=== PATIENT | female | born 1965 | race African-American/Black ===

== ENCOUNTER → 2016-10-21 | Outpatient (CLI) | payer OTHER ==
[2016-09-16 23:05] VITALS: BP 171/85
[2016-10-21 09:00] LABS: BASOPHILS % (AUTO) 0.7 % (0.2-1.0); EOSINOPHILS # (AUTO) 0.1 x10^3/uL (0.0-0.2); EOSINOPHILS % (AUTO) 2.5 % (0.9-2.9); HEMATOCRIT 38.4 % (36.0-47.0); HEMOGLOBIN 12.7 g/dL (12.0-16.0); LYMPHOCYTES # (AUTO) 1.4 X10^3/uL (1.3-2.9); LYMPHOCYTES % (AUTO) 31.8 % (21.0-51.0); MEAN CORPUSCULAR HEMOGLOBIN 28.1 pg (27.0-34.0); MEAN CORPUSCULAR VOLUME 85.1 fL (80.0-100.0); MEAN PLATELET VOLUME 9.5 fL (7.4-11.0); MONOCYTES # (AUTO) 0.6 x10^3/uL (0.3-0.8); MONOCYTES % (AUTO) 12.8 % (0.0-13.0); NEUTROPHILS # (AUTO) 2.3 x10^3/uL (2.2-4.8); NEUTROPHILS % (AUTO) 52.2 % (42.0-75.0); PLATELET COUNT 149 X10^3/uL (150.0-450.0); RED BLOOD COUNT 4.51 X10^6/uL (3.5-5.4); RED CELL DISTRIBUTION WIDTH 14.6 % (11.6-16.5); WHITE BLOOD COUNT 4.5 X10^3/uL (3.6-10.0)
[2016-10-21 09:22] LABS: ALANINE AMINOTRANSFERASE 49 Units/L (12-78); ALBUMIN 3.9 g/dL (3.4-5.0); ALKALINE PHOSPHATASE 110 Units/L (46-116); ASPARTATE AMINO TRANSFERASE 78 Units/L (15-37); BLOOD UREA NITROGEN 26 mg/dL (7-18); CALCIUM 9.3 mg/dL (8.5-10.1); CARBON DIOXIDE 28.2 mmol/L (21-32); CHLORIDE 100 mmol/L (98-107); FREE T4 (FREE THYROXINE) 1.15 ng/dL (0.76-1.46); GLUCOSE 108 mg/dL (65-99); SODIUM 137 mmol/L (136-145); T4 (THYROXINE) 8.2 ug/dL (4.7-13.3); eGFR BLACK RACES > 60 (>60); eGFR NON BLACK RACES 51 (>60)
[2016-10-21 09:42] LABS: ERYTHROCYTE SEDIMENTATION RATE 26 MM/HOUR (0-20)
[2016-10-21 09:54] LABS: TRANSFERRIN 273 mg/dL (202-364)
== END ==
LOC: LAB 08:09
PROVIDERS: ATTEND Nurse Practitioner Family
DX: R25.3 Fasciculation (principal); I10 Essential (primary) hypertension; R79.89 Other specified abnormal findings of blood chemistry
CPT/HCPCS: 36415; 80053; 82607; 82728; 82746; 84436; 84439; 84443; 84466; 85025; 85652

== ENCOUNTER → 2016-11-05 | Outpatient (CLI) | payer OTHER ==
[2016-09-16 23:05] VITALS: BP 171/85
[2016-11-05 10:58] LABS: MAGNESIUM 1.5 mg/dL (1.7-2.9)
--- NOTE | 2016-11-05 14:23 | US ---
Indication: Elevated liver enzymes. Exam: Right upper quadrant ultrasound . Technique: Transverse and longitudinal grayscale and color Doppler sonographic images were obtained of the right upper quadrant. Findings: The liver is normal size and echogenicity. There is hepatopetal flow in the portal vein an d visualized hepatic veins and IVC are unremarkable. The gallbladder is normal size with no gallston es or wall thickening. The common duct measures 3 mm. The visualized aorta and pancreas unremarkable . The right kidney measures 11.7 cm in length is normal in echogenicity with no hydronephrosis, tio al stone, or mass seen. Impression: No abnormality seen. Reported By:
[2016-11-09 15:10] LABS: HEPATITIS A ANTIBODY IGM Negative (Negative)
[2016-11-10 06:22] LABS: HEPATITIS B CORE IGM Negative (Negative); HEPATITIS B SURFACE ANTIGEN Negative (Negative)
== END ==
LOC: RAD 10:13
PROVIDERS: ATTEND Nurse Practitioner Family
DX: R74.8 Abnormal levels of other serum enzymes (principal); R25.2 Cramp and spasm
CPT/HCPCS: 36415; 76705; 80074; 83735; 84132

== ENCOUNTER 2017-01-06 08:09 | Day surgery (SDC) | payer OTHER ==
[2017-01-06] MEDS ORDERED: D5 LR 1000 ML 1,000 ML IV ONE (08:19)
[2017-01-06] MEDS ORDERED: DIPRIVAN VIAL 20 ML ONE (09:47)
[2017-01-06] MEDS ORDERED: DIPRIVAN VIAL 10 ML ONE (10:07)
[2017-01-06 13:26] VITALS: BP 127/84
== END 2017-01-06 10:35 | disposition home or self-care (01) ==
LOC: SURG1 08:09
PROVIDERS: ATTEND Internal Medicine Gastroenterology
PROC: 0DJD8ZZ Inspection of Lower Intestinal Tract, Via Natural or Artificial Opening Endoscopic (ICD-10-PCS; principal; 2017-01-06 10:15)
DX: Z12.11 Encounter for screening for malignant neoplasm of colon (principal); K57.30 Diverticulosis of large intestine without perforation or abscess without bleeding; K64.0 First degree hemorrhoids
CPT/HCPCS: A4217; J3490; J7120

== ENCOUNTER → 2017-02-23 | Outpatient (CLI) | payer OTHER ==
[2017-02-23 17:01] LABS: BASOPHILS # (AUTO) 0.1 X10^3/uL (0.0-0.1); BASOPHILS % (AUTO) 0.9 % (0.2-1.0); EOSINOPHILS % (AUTO) 0.6 % (0.9-2.9); HEMATOCRIT 38.5 % (36.0-47.0); HEMOGLOBIN 12.6 g/dL (12.0-16.0); LYMPHOCYTES # (AUTO) 2.5 X10^3/uL (1.3-2.9); LYMPHOCYTES % (AUTO) 35.4 % (21.0-51.0); MEAN CORPUSCULAR HEMOGLOBIN 29.4 pg (27.0-34.0); MEAN CORPUSCULAR HGB CONC 32.9 g/dL (33.0-35.0); MEAN CORPUSCULAR VOLUME 89.4 fL (80.0-100.0); MEAN PLATELET VOLUME 9.4 fL (7.4-11.0); MONOCYTES # (AUTO) 0.4 x10^3/uL (0.3-0.8); NEUTROPHILS # (AUTO) 4.1 x10^3/uL (2.2-4.8); NEUTROPHILS % (AUTO) 58.1 % (42.0-75.0); PLATELET COUNT 222 X10^3/uL (150.0-450.0); RED CELL DISTRIBUTION WIDTH 13.9 % (11.6-16.5); WHITE BLOOD COUNT 7.1 X10^3/uL (3.6-10.0)
[2017-02-23 17:12] LABS: ALBUMIN 3.2 g/dL (3.4-5.0); C-REACTIVE PROTEIN 14.3 mg/L (0-3.0); CALCIUM 8.6 mg/dL (8.5-10.1); CARBON DIOXIDE 27.4 mmol/L (21-32); COR CA(FOR HYPOALB) 9.2 mg/dL (8.5-10.1); CREATININE 1.23 mg/dL (0.55-1.02); TOTAL PROTEIN 8.4 g/dL (6.4-8.2); URIC ACID 4.9 mg/dL (2.6-6.0)
[2017-02-23 17:19] LABS: RHEUMATOID FACTOR NEGATIVE (NEGATIVE)
--- NOTE | 2017-02-23 17:38 | RAD ---
HISTORY: Right knee pain. Complete three view series of the right knee joint. Findings: Examination of the knee joint demonstrate no evidence for acute fracture or dislocation. The medial and lateral tibiofemoral compartments demonstrate moderate to severe joint space narrowing and oste ophyte formation; most severe in the medial knee compartment. There is also a degenerative appearing genu valgum deformity. The findings are compatible with moderate to severe degenerative joint disea se. The lateral radiograph demonstrates a very small suprapatellar joint effusion. Patellofemoral compartment also shows moderate to severe DJD with chondromalacia patella. There is mild soft tissue swelling about the knee joint without underlying bony injury or fracture seen. No aggressive / dest ructive lytic bony lesions are seen. IMPRESSION: Moderate to severe right knee joint tricompartmental osteoarthritis, most severe medially, with a de generative appearing genu valgum deformity and chondromalacia patella. No evidence for an acute frac ture, subluxation, or lytic bony lesion. There is bone on bone joint space height loss appreciated medially. Reported By:
[2017-02-23 17:51] LABS: ERYTHROCYTE SEDIMENTATION RATE 37 MM/HOUR (0-20)
--- NOTE | 2017-02-23 18:00 | RAD ---
HISTORY: Left knee pain. Complete radiographic series of the left knee joint. Findings: Examination of the knee joint demonstrate no evidence for acute fracture or dislocation. The medial and lateral tibiofemoral compartments demonstrate moderate to severe joint space narrowing and oste ophyte formation; most severe in the medial knee compartment. The findings are compatible with moder ate to severe degenerative joint disease. The lateral radiograph demonstrates a very small suprapat ellar joint effusion. Patellofemoral compartment also shows moderate to severe DJD with chondromala susanne patella. There is mild soft tissue swelling about the knee joint without underlying bony injury or fracture seen. No aggressive / destructive lytic bony lesions are seen. IMPRESSION: Moderate to severe left knee joint tricompartmental osteoarthritis, most severe medially, with near bone on bone medial joint space height loss and advanced chondromalacia patella. No evidence for an acute fracture, subluxation, or lytic bony lesion. Reported By:
--- NOTE | 2017-02-24 16:05 | MG ---
HISTORY: SCREENING Comparison: Multiple mammograms dating back to January 01, 2015. FINDINGS: Bilateral CC and MLO projections of the right and left breast were obtained. Scattered fibroglandul ar tissue is seen to be present. No significant architectural distortion, mass or clustered microca lcifications can be observed to suggest malignancy. No skin thickening or nipple retraction is appr eciated. No pathological lymphadenopathy can be identified. Benign-appearing calcifications scatte red throughout the right and left breasts are observed. IMPRESSION: NO RADIOGRAPHIC EVIDENCE OF MALIGNANCY. ACR CATEGORY: 2 - benign findings. FOLLOW-UP EXAM 1 YEAR. Diagnostic CAD was utilized and reviewed. * 0 (ZERO) - ASSESSMENT INCOMPLETE; ADDITIONAL IMAGING IS NEEDED. * 1/1 (ONE) - NEGATIVE. * 2/II (TWO) - BENIGN FINDINGS. * 3/III (THREE) - PROBABLY BENIGN FINDING; SHORT INTERVAL FOLLOW-UP SUGGESTED. * 4/IV (FOUR) - SUSPICIOUS ABNORMALITY; BIOPSY SHOULD BE CONSIDERED. * 5/V - HIGHLY SUSPICIOUS OF MALIGNANCY; BIOPSY SHOULD BE PERFORMED. A NEGATIVE X-RAY REPORT SHOULD NOT DELAY BIOPSY IF A DOMINANT OR CLINICALLY SUSPICIOUS MASS IS PRESENT; 4 TO 8 PERCENT OF CANCERS ARE NOT IDENTIFIED BY X-RAY. A NEG ATIVE REPORT MAY REINFORCE THE CLINICAL IMPRESSION. ADENOSIS AND DENSE BREASTS MAY OBSCURE AN UNDER LYING NEOPLASM. Reported By:
[2017-02-28 06:45] LABS: ANTI-NUCLEAR ANTIBODY TEST None Detected (None Detected)
== END ==
LOC: RAD 16:33
PROVIDERS: ATTEND Nurse Practitioner Family
DX: Z12.31 Encounter for screening mammogram for malignant neoplasm of breast (principal); I10 Essential (primary) hypertension; M25.561 Pain in right knee; M25.562 Pain in left knee
CPT/HCPCS: 36415; 73564; 77067; 80053; 84550; 85025; 85652; 86140; 86308; 86430